=== PATIENT | female | born 1965 | race Caucasian/White ===

== ENCOUNTER 2016-08-14 11:45 | Emergency (ER) | payer BC ==
[2016-08-15 13:39] LABS: APPEARANCE,URINE SLIGHTLY-CLOUDY; BILIRUBIN,URINE NEGATIVE (NEGATIVE); GLUCOSE, URINE NEGATIVE (NEGATIVE); KETONES,URINE NEGATIVE (NEGATIVE); LEUKOCYTE ESTERASE,URINE LARGE (NEGATIVE); NITRITE,URINE NEGATIVE (NEGATIVE); PROTEIN,URINE NEGATIVE (NEGATIVE); URINE SPECIFIC GRAVITY 1.008; UROBILINOGEN,URINE NEGATIVE mg/dL (<2.0)
[2016-08-15 16:47] LABS: URINE PHENCYCLIDINE SCREEN NEGATIVE
[2016-08-15 16:48] LABS: URINE BARBITURATES SCREEN NEGATIVE; URINE METHADONE SCREEN NEGATIVE; URINE OPIATES LOW UNCONFIRMED POSITIVE
== END 2016-08-14 22:30 | disposition left against medical advice (07) ==
LOC: ER 11:45
DX: Z53.21 Procedure and treatment not carried out due to patient leaving prior to being seen by health care provider (principal)
CPT/HCPCS: 70450; 80307; 81001

== ENCOUNTER 2016-08-14 12:01 | Emergency (ER) | payer BC | END 2016-08-14 14:00 | disposition left against medical advice (07) | LOC: ER 12:01 | DX: Z53.21 Procedure and treatment not carried out due to patient leaving prior to being seen by health care provider (principal) | CPT/HCPCS: 99285 ==